=== PATIENT | male | born 1980 | race Caucasian/White ===

== ENCOUNTER 2019-01-16 11:43 | Emergency (ER) | payer OTHER ==
[~2019-01-16] VITALS: Ht 182.9 cm; Wt 104.3 kg
[2019-01-16 12:36] LABS: ABSOLUTE NEUTROPHILS 4.3 thou/uL (1.4-8.2); BASOPHILS 0.8 % (0.0-2.0); EOSINOPHILS 2.5 % (0.0-3.0); HEMATOCRIT 50.1 % (42.0-52.0); HEMOGLOBIN 17.1 gm/dL (14.0-18.0); LYMPHOCYTES 26.3 % (24.0-44.0); MCH 29.6 pg (26.0-34.0); MCHC 34.1 g/dL (28.0-37.0); MCV 86.9 fL (80.0-100.0); MONOCYTES 9.2 % (1.0-8.0); PLATELET COUNT 309 thou/uL (150-400); POLYS 61.2 % (36.0-66.0); RBC 5.77 mil/uL (4.50-6.00); RDW 13.9 % (10.5-14.5)
[2019-01-16 12:44] LABS: ANION GAP 8 mmol/L (7-16); BUN 12 mg/dL (7-18); CALCIUM 9.4 mg/dL (8.5-10.1); CHLORIDE 102 mmol/L (98-107); CO2 28 mmol/L (21-32); GLUCOSE 101 mg/dL (74-106); POTASSIUM 3.6 mmol/L (3.5-5.1); SODIUM 138 mmol/L (136-145)
[2019-01-16 12:54] LABS: ALBUMIN 4.2 g/dL (3.4-5.0); SGOT 31 U/L (15-37); SGPT 74 U/L (30-65); TOTAL BILIRUBIN 0.5 mg/dL (<0.1-1.0); TOTAL PROTEIN 8.3 g/dL (6.4-8.2); TROPONIN-I <0.06 ng/mL (<0.06)
--- NOTE | 2019-01-16 14:11 | EKG ---
[address] [address] ELECTROCARDIOGRAM REPORT Name: MATHEWALENA Room #: REG MATHIEU Gallo#: [id number] Admission: 01/16/19 Attend Phys: Discharge: Date of : 80 Report #: [id number] THIS REPORT FOR: //name// [facility] ED Test Date: 2019-01-16 Test Time: 11:48:26 Pat Name: ALENA CARMONA Department: Room: Gender: Account Support Specialist: BEKAH : 1980 Requested By: Olaf Leal Order Number: [id number] MD: Jay Fraire Measurements Intervals [place] Rate: 79 P: 40 DE: 133 QRS: -2 QRSD: 90 T: 27 QT: 372 QTc: 427 Interpretive Statements Sinus arrhythmia No previous ECG available for comparison Electronically Signed On 01-16-2019 14:11:45 CDT by Jay Fraire [email or web address] <ELECTRONICALLY SIGNED> By: Jay Fraire MD 01/16/19 1411 1148 1148 Jay Fraire MD /EPI
[2019-01-16 14:43] VITALS: BP 126/62
== END 2019-01-16 14:47 | disposition home or self-care (01) ==
LOC: ER 11:43
PROVIDERS: Nurse Practitioner Family
DX: R42 Dizziness and giddiness (principal); F41.9 Anxiety disorder, unspecified; Z88.0 Allergy status to penicillin